=== PATIENT | female | born 1995 | race Two or more races ===

== ENCOUNTER 2016-11-25 20:54 | Emergency (ER) | payer MEDICAID, OTHER ==
[2016-11-25 21:00] VITALS: BP 133/80
--- NOTE | 2016-11-25 21:29 | EDM.PDOC ---
ED HPI GENERAL MEDICAL PROBLEM - General Chief Complaint: Lower Extremity Injury/Pain Stated Complaint: right ankle pain Time Seen by Provider: 11/25/16 21:18 Source of Information: Reports: Patient History Limitations: Reports: No Limitations - History of Present Illness INITIAL COMMENTS - FREE TEXT/NARRATIVE: Patient states that she inverted her right ankle earlier today after stepping on a loose piece of concrete. Since then it has swollen and become more painful with weight bearing. Onset: Today, Sudden Onset Date: 11/25/16 Onset Time: 10:15 Duration: Getting Worse Location: Reports: Other (right ankle) Quality: Reports: Ache, Dull, Sharp, Throbbing Severity: Moderate Improves with: Reports: Cold Therapy, Rest Worsens with: Reports: Movement Context: Reports: Activity Associated Symptoms: Reports: Weakness Treatments [employer]: Reports: Acetaminophen, NSAIDS Right Ankle Pain Score (Numeric/FACES): 3 - Related Data Allergies Allergy/AdvReac Type Severity Reaction Status Date / Time amoxicillin Allergy Other Verified 11/25/16 20:57 Penicillins Allergy Other Verified 11/25/16 20:57 Home Meds: Home Meds . [No Known Home Meds] 11/25/16 [History] Past Medical History Musculoskeletal History: Reports: Back Pain, Chronic Social & Family History - Family History Family Medical History: Noncontributory - Tobacco Use Smoking Status *Q: Current Every Day Smoker Years of Tobacco use: 5 Packs/Tins Daily: 0.5 - Recreational Drug Use Recreational Drug Use: No - Sexual History Sexual History: Reports: Same Sex Partner - Living Situation & Occupation Living situation: Reports: with Significant Other Occupation: Employed Review of Systems - Review of Systems Review Of Systems: ROS reveals no pertinent complaints other than HPI. ED EXAM, GENERAL - Physical Exam Exam: See Below Exam Limited By: No Limitations General Appearance: Alert, WD/WN, No Apparent Distress Head: Atraumatic, Normocephalic Neck: Normal Inspection Respiratory/Chest: No Respiratory Distress, Normal Breath Sounds, No Accessory Muscle Use Cardiovascular: Normal Peripheral Pulses, Regular Rate, Rhythm, No Edema Peripheral Pulses: 2+: Radial (L), Radial (R), Dorsalis Pedis (L), Dorsalis Pedis (R) Extremities: Joint Swelling (lateral right ankle), Limited Range of Motion (of right ankle due to pain ) Neurological: Alert, Oriented, Normal Cognition, Normal Reflexes, No Motor/ Sensory Deficits, Abnormal Gait (atalgic gait due to limp) Psychiatric: Normal Affect, Normal Mood Skin Exam: Warm, Dry, Ecchymosis (to lateral right ankle) Course - Vital Signs Last Recorded V/S: Last Vital Signs Temp 35.9 C 11/25/16 20:57 Pulse 124 H 11/25/16 20:57 Resp 18 11/25/16 20:57 BP 133/80 11/25/16 20:57 Pulse Ox 100 11/25/16 20:57 - Orders/Labs/Meds Orders: Active Orders 24 hr Category Date Time Status Ankle Min 3V Rt [CR] Stat Exams 11/25/16 21:23 Ordered Departure - Departure Time of Disposition: 22:00 Disposition: Home, Self-Care 01 Condition: Good Clinical Impression: Right ankle sprain Qualifiers: Encounter type: initial encounter Involved ligament of ankle: unspecified ligament Qualified Code(s): S93.401A - Sprain of unspecified ligament of right ankle, initial encounter - Discharge Information Instructions: Ankle Sprain, [id number] - My Orders Last 24 Hours: My Active Orders 11/25/16 21:23 Ankle Min 3V Rt [CR] Stat - Assessment/Plan Last 24 Hours: My Active Orders 11/25/16 21:23 Ankle Min 3V Rt [CR] Stat
== END 2016-11-25 22:00 | disposition home or self-care (01) ==
LOC: VM.ED 20:54
DX: S93.401A Sprain of unspecified ligament of right ankle, initial encounter (principal); F17.210 Nicotine dependence, cigarettes, uncomplicated; Z88.0 Allergy status to penicillin; Z88.1 Allergy status to other antibiotic agents; X50.9XXA Other and unspecified overexertion or strenuous movements or postures, initial encounter
CPT/HCPCS: 73610-RT; 99283; 99283-GF-25